=== PATIENT | female | born 1980 | race Caucasian/White ===

== ENCOUNTER 2017-11-04 06:12 | Day surgery (SDC) | payer OTHER | END 2017-11-04 11:40 | disposition home or self-care (01) | LOC: AMB-ENDOS 06:12 | DX: K62.5 Hemorrhage of anus and rectum (principal); K64.8 Other hemorrhoids; K64.0 First degree hemorrhoids ==

== ENCOUNTER 2018-04-02 16:42 | Emergency (ER) | payer OTHER ==
[~2018-04-02] VITALS: Ht 167.6 cm; Wt 66.7 kg
== END 2018-04-02 21:02 | disposition home or self-care (01) ==
LOC: ER 16:42
DX: B34.9 Viral infection, unspecified (principal)

== ENCOUNTER 2018-06-19 15:34 | Emergency (ER) | payer OTHER ==
[~2018-06-19] VITALS: Ht 167.6 cm; Wt 73.5 kg
[2018-06-19] MEDS ORDERED: AMOX-CLAV 875-1 EACH (16:29)
[2018-06-19] MEDS ORDERED: PRENATAL + DHA1 EAC1 (16:36)
== END 2018-06-19 18:10 | disposition home or self-care (01) ==
LOC: ER 15:34
DX: H66.93 Otitis media, unspecified, bilateral (principal)

== ENCOUNTER 2018-07-22 00:45 | Inpatient (IN) | payer OTHER ==
[~2018-07-22] VITALS: Ht 167.6 cm; Wt 78.0 kg
[~2018-07-22 00:45] MED LIST: AMOX-CLAV 875-1 EACH; PRENATAL + DHA1 EAC1
== END 2018-07-24 13:22 | disposition home or self-care (01) | DRG 807 ==
LOC: OB/GYN 00:45 → LDR 00:45 → OB/GYN 03:54
PROVIDERS: Obstetrics & Gynecology
PROC: 0KQM0ZZ Repair Perineum Muscle, Open Approach (ICD-10-PCS; 2018-07-22)
PROC: 4A1HXCZ Monitoring of Products of Conception, Cardiac Rate, External Approach (ICD-10-PCS; 2018-07-22)
PROC: 4A033R1 Measurement of Arterial Saturation, Peripheral, Percutaneous Approach (ICD-10-PCS; 2018-07-22)
PROC: 10E0XZZ Delivery of Products of Conception, External Approach (ICD-10-PCS; principal; 2018-07-22 07:00)
DX: O70.1 Second degree perineal laceration during delivery (principal); O34.211 Maternal care for low transverse scar from previous cesarean delivery; Z37.0 Single live birth; Z3A.38 38 weeks gestation of pregnancy